=== PATIENT | male | born 1995 | race Caucasian/White ===

== ENCOUNTER 2025-04-13 14:50 | Emergency (ER) | payer OTHER, SELFPAY ==
[2025-04-13] VITALS (18 sets, daily range): BP systolic 119–150; BP diastolic 71–94; PULSE 70–87; RESP 18–23; TEMP 36.8; O2SAT 93–100; BMI 29.8
--- NOTE | 2025-04-13 15:29 | EKG_ITS ---
[facility] [address] [place] [id number] Test Date: 2025-04-13 Pat Name: MAGDALENA DEL TORO Department: [facility] Room: Gender: Male [employer] Attendant: ER : 1995 Requested By: Order Number: [id number] Reading MD: Nilay Servin MD Measurements Intervals [place] Rate: 76 P: [place]: 152 QRS: 20 QRSD: 88 T: 8 QT: 348 QTc: 391 Interpretive Statements Normal sinus rhythm Electronically Signed On 04-13-2025 17:16:53 PDT by Nilay Servin MD
--- NOTE | 2025-04-13 15:29 | DI.RAD.S_ITS ---
PROCEDURE: XR CHEST 1V INDICATIONS: Chest Pain TECHNIQUE: One view of the chest was acquired. COMPARISON: None. FINDINGS: Surgical changes and devices: None. Lungs and pleura: Lungs are clear. No pleural effusions or pneumothorax. Mediastinum: Mediastinal contours appear normal. Heart size is normal. Bones and chest wall: No suspicious bony lesions. Overlying soft tissues appear unremarkable. IMPRESSION: No acute cardiopulmonary abnormality is seen. Dictated by: Pedro Livingston M.D. on 04/13/2025 at 16:30 Approved by: Pedro Livingston M.D. on 04/13/2025 at 16:30
[2025-04-13 15:55] LABS: Add Manual Diff / Slide Review NO; Hematocrit 41.3 % (41-53); Hemoglobin 13.9 g/dL (13.5-17.5); Lymphocytes Absolute Auto 2400 /uL (1100-4500); Mean Corpuscular HGB Conc 33.7 % (30-36); Mean Corpuscular Hemoglobin 30.0 PG (26-34); Mean Corpuscular Volume 88.9 fL (80-100); Platelet Count 298 X10^3/uL (150-400)
[2025-04-13 16:00] LABS: INR 1.0 (0.9-1.3); Prothrombin Time 10.8 SECONDS (9.4-12.5)
[2025-04-13 16:03] LABS: PTT Partial Thromboplastin Tim 31 SECONDS (25.1-36.5)
[2025-04-13 16:06] LABS: Alanine Aminotransferase 39 IU/L (<50); Albumin 4.8 g/dL (3.5-5.0); Albumin Globulin Ratio 1.5 (1.0-2.8); Alkaline Phosphatase 56 U/L (38-126); Blood Urea Nitrogen 13 mg/dL (9-20); Calcium 8.9 mg/dL (8.4-10.2); Carbon Dioxide 25 mmol/L (22-32); Chloride 102 mmol/L (98-107); Creatine Kinase 237 U/L (55-170); Estimated Glomerular Filt Rate > 60 mL/min (>60); Globulin 3.3 g/dL (1.7-4.1); Glucose 98 mg/dL (70-99); HEMOLYSIS 37 (0-50); Lipase 59 U/L (23-300); Magnesium 1.6 mg/dL (1.6-2.3); Potassium 3.8 mmol/L (3.4-5.1); Sodium 138 mmol/L (137-145); Total Protein 8.1 g/dL (6.3-8.2)
--- NOTE | 2025-04-13 16:12 | PC.NURSE ---
Pt reports when he stands up he feels sob and feels his heart rate jumps up. Pt showed RN watch that documented a high of 128bpm. Pt states this HR occurred while pt was walking around. Pt states he has no cp. does not take medicines on a daily basis. Pt reports his dad had a heart attack, congenital heart defect, HTN.
[2025-04-13 16:18] LABS: NT-proBNP (BNP-Adult 18+) 25 pg/mL (<125); Troponin I < 0.012 ng/mL (0.01-0.034)
--- NOTE | 2025-04-13 19:41 | ED.ARRPALP ---
HPI - Arrhythmia/Palpitations General Chief Complaint: Arrhythmia/Palpitations Stated Complaint: HIGH HEART RATE/SOB X7 DAYS Time Seen by Provider: 04/13/25 18:09 Source: patient Mode of arrival: Ambulatory History of Present Illness HPI narrative: 30-year-old male yesterday and today feeling he is having shortness of breath when he gets up and starts walking. No nausea or vomiting or diarrhea. No black or red stools. No history of asthma or lung problems. No changes in medications. No changes in energy drinks or other dietary [id number] substances. Has had some degree of some shortness of breath for the last week or so. Fevers or chills. No recent cough. No leg pain or swelling symptoms. Related Data Previous Rx's ?Medication ?Instructions ?Recorded prednisone 20 mg tablet 40 mg (2 x 20 mg) PO DAILY 5 days 04/13/25 #10 tabs Allergies Allergy/AdvReac Type Severity Reaction Status Date / Time No Known Drug Allergies Allergy Verified 04/13/25 15:21 Patient History Social History Smoking Status: Former smoker Smoking Status: Former smoker Exam Narrative Exam Narrative: GENERAL: Well-developed patient, in mild distress. HEAD: Atraumatic. Normocephalic. EYES: Pupils equal round and reactive. Extraocular motions intact. No scleral icterus. No injection or drainage. ENT: Nose without bleeding, purulent drainage. Throat without erythema, tonsillar hypertrophy or exudate. Airway patent. NECK: Trachea midline. Non tender CARDIOVASCULAR: Regular rate and rhythm without murmurs, gallops, or rubs. RESPIRATORY: Clear to auscultation. Breath sounds equal bilaterally. No wheezes, rales, or rhonchi. GASTROINTESTINAL: Abdomen soft, non-tender, nondistended. EXTREMITIES: No edema or joint tenderness. BACK: Nontender without deformity or crepitance. No flank tenderness. NEURO: AOx3. Motor functions grossly nonfocal. SKIN: No rash or erythema of visible areas Initial Vital Signs Initial Vital Signs: Vital Signs Temperature 98.3 F 04/13/25 15:20 Pulse Rate 84 04/13/25 15:20 Respiratory Rate 18 04/13/25 15:20 Blood Pressure 150/81 H 04/13/25 15:20 Pulse Oximetry 100 04/13/25 15:20 Oxygen Delivery Method Room Air 04/13/25 15:20 Course Orders Ordered: Discontinued Medications Albuterol (Albuterol 2.5 Mg/3 Ml Neb (Adult)) 2.5 mg INH NOW ONE Stop: 04/13/25 20:10 Last Admin: 04/13/25 20:20 Dose: 2.5 mg Documented By: MERISSA Albuterol (Albuterol Hfa Prepack) 1 box MISC DIRECTED ONE Stop: 04/13/25 21:03 Last Admin: 04/13/25 21:06 Dose: 1 box Documented By: Aspirin (Aspirin 81 Mg Chew Tab) 324 mg PO NOW ONE Stop: 04/13/25 15:30 Last Admin: 04/13/25 16:49 Dose: Not Given Documented By: DELILAH Prednisone (Prednisone 20 Mg Tablet) 40 mg PO NOW ONE Stop: 04/13/25 20:54 Last Admin: 04/13/25 21:07 Dose: 40 mg Documented By: Vital Signs Vital signs: Vital Signs - 8 hr 04/13/25 19:32 04/13/25 19:32 04/13/25 19:33 Pulse Rate 74 Pulse Rate [Orthostatic Lying] Pulse Rate [Orthostatic Sitting] Pulse Rate [Orthostatic Standing] Respiratory Rate Blood Pressure 140/85 128/81 Blood Pressure [Orthostatic Lying] Blood Pressure [Orthostatic Sitting] Blood Pressure [Orthostatic Standing] Pulse Oximetry 96 Oxygen Delivery Method Oxygen Flow Rate Fraction of Inspired Oxygen 04/13/25 19:33 04/13/25 19:41 04/13/25 20:00 Pulse Rate 82 82 Pulse Rate [Orthostatic Lying] 78 Pulse Rate [Orthostatic Sitting] 73 Pulse Rate [Orthostatic Standing] 79 Respiratory Rate Blood Pressure Blood Pressure [Orthostatic Lying] 124/71 Blood Pressure [Orthostatic Sitting] 140/85 Blood Pressure [Orthostatic Standing] 128/81 Pulse Oximetry 97 96 Oxygen Delivery Method Oxygen Flow Rate Fraction of Inspired Oxygen 04/13/25 20:23 04/13/25 20:30 04/13/25 21:00 Pulse Rate 80 87 80 Pulse Rate [Orthostatic Lying] Pulse Rate [Orthostatic Sitting] Pulse Rate [Orthostatic Standing] Respiratory Rate 18 23 18 Blood Pressure Blood Pressure [Orthostatic Lying] Blood Pressure [Orthostatic Sitting] Blood Pressure [Orthostatic Standing] Pulse Oximetry 93 94 95 Oxygen Delivery Method Room Air Oxygen Flow Rate 0 Fraction of Inspired Oxygen 21 MDM - Arrhythmia/Palpitations Lab Data Attestation: I reviewed the patient's lab results. Lab results narrative: White blood cell count 8100, hemoglobin 13.9, platelets adequate. Glucose 98. Renal function normal. Serum CO2 25 normal. Electrolytes normal. Troponin negative/unmeasurable. BNP 25 quite low. 04/13/25 15:45 04/13/25 15:45 Labs: Lab Results 04/13/25 Range/Units 15:45 WBC 8.1 (4.5-11.0) X10^3/uL RBC 4.65 (4.5-5.9) X10^6/uL Hgb 13.9 (13.5-17.5) g/dL Hct 41.3 (41-53) % MCV 88.9 (80-100) fL MCH 30.0 (26-34) PG MCHC 33.7 (30-36) % RDW 13.0 (11.6-14.8) % Plt Count 298 (150-400) X10^3/uL Neut % (Auto) 60.5 (50-75) % Lymph % (Auto) 30.0 (25-40) % [place] % (Auto) 6.9 (3-14) % Eos % (Auto) 1.8 L (2-4) % Baso % (Auto) 0.8 (0-2) % Neut # (Auto) 4900 (1832-6294) /uL Lymph # (Auto) 2400 (6986-5642) /uL [place] # (Auto) 600 (0-900) /uL Eos # (Auto) 100 (0-450) /uL Baso # (Auto) 100 (0-100) /uL PT 10.8 (9.4-12.5) SECONDS INR 1.0 (0.9-1.3) APTT 31 (25.1-36.5) SECONDS D-Dimer < 215 (<500) ng/ml Sodium 138 (137-145) mmol/L Potassium 3.8 (3.4-5.1) mmol/L Chloride 102 (98-107) mmol/L Carbon Dioxide 25 (22-32) mmol/L BUN 13 (9-20) mg/dL Creatinine 0.78 (0.66-1.25) mg/dL Estimated GFR > 60 (>60) mL/min BUN/Creatinine Ratio 16.7 (6-22) Glucose 98 (70-99) mg/dL Calcium 8.9 (8.4-10.2) mg/dL Magnesium 1.6 (1.6-2.3) mg/dL Total Bilirubin 0.6 (0.2-1.3) mg/dL AST 37 (17-59) IU/L ALT 39 (<50) IU/L Alkaline Phosphatase 56 (38-126) U/L Total Creatine Kinase 237 H (55-170) U/L Troponin I < 0.012 (0.01-0.034) ng/mL NT-Pro-B Natriuret Pep 25 (<125) pg/mL Total Protein 8.1 (6.3-8.2) g/dL Albumin 4.8 (3.5-5.0) g/dL Globulin 3.3 (1.7-4.1) g/dL Albumin/Globulin Ratio 1.5 (1.0-2.8) Lipase 59 (23-300) U/L Imaging Data Chest x-ray: Radiologist's Impresson: [place] [address] XRay Report Signed Patient: Genaro Stevens MR#: [id number] : 1995 Acct:[id number] Age/Sex: 30 / M Date of Service: 04/13/25 Loc: ED Accession Number: [id number] Procedure: XR chest 1V Ordering Provider: Rima Almeida D.O. PROCEDURE: XR CHEST 1V INDICATIONS: Chest Pain TECHNIQUE: One view of the chest was acquired. COMPARISON: None. FINDINGS: Surgical changes and devices: None. Lungs and pleura: Lungs are clear. No pleural effusions or pneumothorax. Mediastinum: Mediastinal contours appear normal. Heart size is normal. Bones and chest wall: No suspicious bony lesions. Overlying soft tissues appear unremarkable. IMPRESSION: No acute cardiopulmonary abnormality is seen. Dictated by: Pedro Livingston M.D. on 04/13/2025 at 16:30 Approved by: ePdro Livingston M.D. on 04/13/2025 at 16:30 ECG Data Interpretation: 1535, normal sinus rhythm with rate of 76. No obvious ST segment elevation or depression changes. T-wave inversion lead 3 and F. Upright in lead 2. [place] 152, QRS 88, QTC 391. MDM Narrative Medical decision making narrative: 30-year-old male with dyspnea with minimal exertion, no prior history of cardiac or lung problems, afebrile, SIRS screen negative. Lungs clear. Speaking in full sentences. EKG unremarkable. Labs pending. Chest x-ray pending. SVN albuterol given, patient feels improved. Less short of breath. Chest x-ray no acute changes. See radiology report. Lab data: White blood cell count 8100, hemoglobin 13.9, platelets adequate. Glucose 98. Renal function normal. Serum CO2 25 normal. Electrolytes normal. Liver functions and lipase normal. Troponin negative/unmeasurable. BNP 25 quite low. Feels better after breathing treatment. We will discharge on albuterol/spacer to use 2 puffs 4 times daily and then as needed. Prednisone dose given, prednisone pulse sent to his pharmacy. Recheck advised with the PCP later this week. Discharged home. Return precautions discussed. Discharge Plan Departure Patient Disposition: Home Clinical Impression: Exertional shortness of breath Activity Restrictions/Additional Instructions: Shortness of breath with exertion for this last week or so, no history of chronic heart or lung problems. EKG, chest x-ray, labs screening studies unremarkable. Trial of nebulized bronchodilator breathing treatment, symptoms improved. Possible bronchospasm as cause of your symptoms. Oral prednisone steroid given, prescription sent to your pharmacy for further prednisone pulse. Albuterol inhaler with spacer dispensed from the emergency department, 2 puffs 4 times daily for the next week or so, and then as needed. Recheck symptoms with your regular doctor later this week. Prescriptions: New prednisone 20 mg tablet 40 mg PO DAILY 5 Days Qty: 10 0RF Stand Alone Forms: Patient Portal/API
[2025-04-13] MEDS: ALBUTEROL 2.5 MG/3 ML NEB (ADULT) INH (20:20)
[2025-04-13] MEDS: ALBUTEROL HFA PREPACK 1 BOX MISC (21:06)
== END 2025-04-13 21:12 | disposition home or self-care (01) ==
PROVIDERS: Emergency Medicine; Emergency Provider Emergency Medicine
DX: R06.02 Shortness of breath (principal); R00.2 Palpitations; R07.9 Chest pain, unspecified
CPT/HCPCS: 36415; 71045; 80053; 82550; 83690; 83735; 83880; 84484; 85025; 85379; 85610; 85730; 93005; 93010; 94640; 99284; J7613